=== PATIENT | female | born 1985 | race African-American/Black ===

== ENCOUNTER 2018-07-25 09:17 | Emergency (ER) | payer SELFPAY ==
[2018-07-25 09:23] VITALS: BP 137/85
--- NOTE | 2018-07-25 09:43 | ER Document Report ---
HPI - HPI Patient complains to provider of: ring stuck on finger Onset: This morning Onset/Duration: Gradual Quality of pain: Achy Pain Level: 4 Context: Patient complains of burning ring being stuck on her finger for the past hour. Associated Symptoms: Other - Left fourth finger pain Exacerbated by: Movement Relieved by: Denies Similar symptoms previously: No Recently seen / treated by doctor: No - ROS ROS below otherwise negative: Yes Systems Reviewed and Negative: Yes All other systems reviewed and negative - CONSTITUTIONAL Constitutional: DENIES: Fever - MUSCULOSKELETAL Musculoskeletal: REPORTS: Extremity pain, Swelling - DERM Skin Color: Normal Skin Problems: None Past Medical History - General Information source: Patient - Social History Smoking Status: Former Smoker Frequency of alcohol use: Occasional Drug Abuse: None Lives with: Spouse/Significant other Family History: Reviewed & Not Pertinent Patient has suicidal ideation: No Patient has homicidal ideation: No - Medical History Medical History: Negative Renal/ Medical History: Denies: Hx Peritoneal Dialysis Past Surgical History: Reports: Hx Orthopedic Surgery - foot Vertical Provider Document - CONSTITUTIONAL Agree With Documented VS: Yes Exam Limitations: No Limitations General Appearance: WD/WN, No Apparent Distress - INFECTION CONTROL TRAVEL OUTSIDE OF THE [place] IN LAST 30 DAYS: No - HEENT HEENT: Atraumatic, Normocephalic - NECK Neck: Normal Inspection - RESPIRATORY Respiratory: No Respiratory Distress - CARDIOVASCULAR Pulses: Normal: Radial - MUSCULOSKELETAL/EXTREMETIES Musculoskeletal/Extremeties: MAEW, Tender - Left fourth finger tenderness, Edema - 1+ edema to proximal phalanx of left fourth finger ring in place - NEURO Level of Consciousness: Awake, Alert, Appropriate Motor/Sensory: No Motor Deficit - DERM Integumentary: Warm, Dry, No Rash Course - Re-evaluation Re-evalutation: 07/25/18 09:51 After consent was obtained ring was removed. Patient tolerated procedure well. Skin intact underneath ring. - Vital Signs Vital signs: Temp Pulse Resp BP Pulse Ox 98.0 F 79 16 137/85 H 100 07/25/18 09:21 07/25/18 09:21 07/25/18 09:21 07/25/18 09:21 07/25/18 09:21 Discharge - Discharge Clinical Impression: ring removal Condition: Stable Disposition: HOME, SELF-CARE Additional Instructions: Return immediately for any new or worsening symptoms Followup with your primary care provider, call tomorrow to make a followup appointment Referrals: JESSICA MELTON, DO [ACTIVE STAFF] - Follow up as needed
== END 2018-07-25 09:53 | disposition home or self-care (01) ==
LOC: ER 09:17
DX: S60.455A Superficial foreign body of left ring finger, initial encounter (principal); R60.0 Localized edema; X58.XXXA Exposure to other specified factors, initial encounter; Z87.891 Personal history of nicotine dependence
CPT/HCPCS: 99283

== ENCOUNTER 2018-09-10 18:08 | Emergency (ER) | payer SELFPAY ==
[~2018-09-10 18:08] MED LIST: ADENOSINE INJ/PF 6 MG/2 ML SDV IV ONE; EPINEPHRINE INJ 1 MG/10 ML DISP.SYRIN ONE; SODIUM BICARBONATE 8.4% INJ 50 MEQ/50 ML DISP.SYRIN ONE
[2018-09-10] MEDS ORDERED: EPINEPHRINE INJ/PF 1 MG/1 ML AMPULE ONE ×2 (18:21→23:18)
--- NOTE | 2018-09-10 18:37 | ER Document Report ---
ED Resuscitation - General Information source: Relative TRAVEL OUTSIDE OF THE [place] IN LAST 30 DAYS: No <JEET DIAS - Last Filed: 09/10/18 22:59> <AYLIN CANELA - Last Filed: 09/11/18 02:36> - General Chief Complaint: Cardiac Arrest Stated Complaint: UNRESPONSIVE Time Seen by Provider: 09/10/18 18:32 Notes: Patient is a 33-year-old female that presents to the emergency department today unresponsive and in asystole. The patient was brought in through the front door by her . states that him and the patient lied down to take a nap around 1500 this afternoon and everything seemed to be normal. states he left to take his nephew somewhere and the patient went in to take a shower as he was leaving. states when he got home the patient was not out of the bathroom yet so he went in to check on her and she was on the floor, on her knees, unresponsive and pulseless. states the patient has no medical problems that he knows of other than a "recent throat infection" but he does not elaborate on this. denies any family or personal history of PE/ DVT. (JEET DIAS) - Related Data Allergies/Adverse Reactions: Penicillins Allergy (Verified 09/10/18 19:39) Past Medical History - General Information source: Relative - - Social History Smoking Status: Unknown if Ever Smoked Family History: Reviewed & Not Pertinent Past Surgical History: Reports: Hx Orthopedic Surgery - foot <JEET DIAS - Last Filed: 09/10/18 22:59> Review of Systems - Review of Systems -: Yes ROS unobtainable due to patient's medical condition <JEET DIAS - Last Filed: 09/10/18 22:59> Physical Exam <JEET DIAS - Last Filed: 09/10/18 22:59> - Vital signs Interpretation: Other - No pulse. No spontaneous respirations - General General appearance: Unresponsive In distress: Severe - HEENT Head: Normocephalic, Atraumatic Pupils: Dilated, Fixed - Respiratory Respiratory status: Other - No spontaneous respirations - Cardiovascular Rhythm: Other - No pulse palpated - Abdominal Inspection: Normal - Back Back: Normal - Extremities General upper extremity: No: Normal temperature General lower extremity: No: Normal temperature - Neurological Neuro grossly intact: No [place] Coma Scale Eye Opening: None René Coma Scale Verbal: None René Coma Scale Motor: None [place] Coma Scale Total: 3 - Skin Skin Temperature: Cool <AYLIN CANELA - Last Filed: 09/11/18 02:36> - Vital signs Vitals: Pulse BP 140 H 97/58 L 09/10/18 18:27 09/10/18 18:27 - Neurological Notes: No gag or corneal reflex (AYLIN CANELA) Course - Laboratory Result Diagrams: 09/10/18 22:17 09/10/18 18:20 <JEET DIAS - Last Filed: 09/10/18 22:59> - Laboratory Result Diagrams: 09/10/18 22:17 09/10/18 18:20 <AYLIN CANELA - Last Filed: 09/11/18 02:36> - Re-evaluation Re-evalutation: 09/10/18 18:42 Placed call to [facility] for emergent transfer 09/10/18 18:46 Dr. Durbin, ICU attending returned phone call. Dr. Durbin states that he is not accepting the patient until a head CT is performed and bloodwork is resulted, stating that the work up needs to be completed before he will accept the patient causing a delay in patient care/transfer. 09/10/18 19:[address] Abdoulaye Villarreal accepts patient for transfer. 09/10/18 20:45 Radiology called to report diffuse cerebral edema on the head CT, called [facility] to update. 09/10/18 20:48 [facility] returned call. Now accepts patient. 09/10/18 22:59 (JEET DIAS) Patient is a 33-year-old female who is brought in by her after she was found down in the bathroom. Patient has no known medical problems She is brought to the emergency department where she was found to be pulseless and apneic CPR was initiated. Please see code note. present during code Patient was intubated. The area was swollen and there appeared to be food coming up from her trachea, specifically rice. Fluids were given, epinephrine drip was initiated for hypotension which was later removed as the patient blood pressure was tripled over triple. Patient was discussed with [facility] and would not accept patient until CT was done to make sure that the patient did not need the neuro ICU [place] would accept patient but family wanted her to go to [facility] as the patient's father is admitted to the ICU there When transport arrived, which there was a delay due to weather and availability , patient's O2 on blood gas was 15 ICU attending would not accept the patient Had a very long discussion with the family about cerebral edema on CT, blood work, and that the patient could have a poor outcome between here and [facility]. Nursing staff and transport staff present for discussion Family decided to call other family members and then withdraw care Drips were stopped and patient was taken off ventilator although ET tube remain in place Time of 0204. Discussed at length with family. They would like autopsy. (AYLIN CANELA) - Vital Signs Vital signs: Temp Pulse Resp BP Pulse Ox 98.2 F 62 0 L 89/15 L 92 09/11/18 02:04 09/10/18 20:10 09/11/18 02:04 09/11/18 01:46 09/10/18 22:29 - Laboratory Laboratory results interpreted by me: 09/10/18 09/10/18 09/10/18 18:20 18:20 18:20 WBC RBC 2.07 L Hgb 6.4 L Hct 21.8 L MCV 105 H MCHC 29.6 L RDW 15.6 H Plt Count 88 L Seg Neutrophils % Lymphocytes % (Manual) 46 H Monocytes % Monocytes % (Manual) 2 L Absolute Neutrophils Carbonic Acid ABG pH ABG pCO2 ABG pO2 ABG HCO3 ABG Total CO2 ABG O2 Saturation VBG pH 6.66 L* VBG pCO2 103.1 H* VBG HCO3 11.2 L Chloride 111 H Carbon Dioxide 13 L Glucose 235 H Lactic Acid Calcium 6.9 L* AST 86 H ALT 86 H Alkaline Phosphatase 32 L Total Protein 3.8 L Albumin 1.9 L Urine Protein Urine Glucose (UA) Urine Blood Salicylates Acetaminophen 09/10/18 09/10/18 09/10/18 18:20 18:20 18:49 WBC RBC Hgb Hct MCV MCHC RDW Plt Count Seg Neutrophils % Lymphocytes % (Manual) Monocytes % Monocytes % (Manual) Absolute Neutrophils Carbonic Acid 2.42 H ABG pH 6.89 L* ABG pCO2 80.4 H* ABG pO2 209.6 H ABG HCO3 15.1 L ABG Total CO2 17.6 L ABG O2 Saturation 98.5 H VBG pH VBG pCO2 VBG HCO3 Chloride Carbon Dioxide Glucose Lactic Acid 9.9 H Calcium AST ALT Alkaline Phosphatase Total Protein Albumin Urine Protein Urine Glucose (UA) Urine Blood Salicylates < 1.0 L Acetaminophen < 10 L 09/10/18 09/10/18 09/10/18 21:05 22:17 22:17 WBC 12.7 H RBC Hgb Hct MCV MCHC RDW 14.4 H Plt Count Seg Neutrophils % 84.1 H Lymphocytes % (Manual) Monocytes % 1.5 L Monocytes % (Manual) Absolute Neutrophils 10.7 H Carbonic Acid ABG pH ABG pCO2 ABG pO2 ABG HCO3 ABG Total CO2 ABG O2 Saturation VBG pH VBG pCO2 VBG HCO3 Chloride Carbon Dioxide Glucose Lactic Acid 5.2 H Calcium AST ALT Alkaline Phosphatase Total Protein Albumin Urine Protein 30 H Urine Glucose (UA) >=500 H Urine Blood LARGE H Salicylates Acetaminophen Procedures - Intubation Orotracheal Airway evaluation: Copious secretions Mallampati Classification: Class 2 Intubation method: Orotracheal Blade type: Martinez Blade size: 4 Equipment used: Glidescope ETT size: 7.0 ETT secured at: Teeth Breath Sounds after Intubation: Equal End tidal CO2 confirmed: Yes Ventilator settings: CMV Post Intubation Xray: Yes Intubation Complications: Oral-unsuccessful attempt - Patient with vomiting and rice in her trachea Very swollen oropharynx Attempted twice with glide scope and unable to pass tube Attempted with Martinez for and was able to visualize the vocal cords and pass the endotracheal tube <AYLIN CANELA - Last Filed: 09/11/18 02:36> - Intubation Orotracheal Notes: 09/11/18 02:34 Very difficult airway (AYLIN CANELA) Critical Care Note - Critical Care Note Total time excluding time spent on procedures (mins): 120 - Evaluation and management of respiratory arrest, cardiac arrest, coordination of transfer, counseling of family, management of post cardiac arrest, removal of care at family's request, counseling of family <AYLIN CANELA - Last Filed: 09/11/18 02:36> Discharge <JEET DIAS - Last Filed: 09/10/18 22:59> <AYLIN CANELA - Last Filed: 09/11/18 02:36> - Discharge Clinical Impression: Respiratory arrest, Cardiac arrest Condition: Poor Disposition: Scribe Attestation: 09/11/18 02:35 I personally performed the services described in the documentation, reviewed and edited the documentation which was dictated to the scribe in my presence, and it accurately records my words and actions. (AYLIN CANELA) Scribe Documentation - Scribe Written by Scribe:: Letty Kim, [id number]/10/[id number] acting as scribe for :: Shamika <JEET DIAS - Last Filed: 09/10/18 22:59>
[2018-09-10] MEDS ORDERED: NORMAL SALINE 1000 ML 1,000 ML IV ONE (18:41)
[2018-09-10] MEDS: DEXTROSE 5%-WATER 250 ML with EPINEPHRINE/PF 1 MG IV PRN ×2 (18:45)
[2018-09-10 18:55] LABS: HEMATOCRIT 21.8 % (36.0-47.0); MEAN CORPUSCULAR HEMOGLOBIN 31.1 pg (27.0-33.4); MEAN CORPUSCULAR HGB CONC 29.6 g/dL (32.0-36.0); MEAN CORPUSCULAR VOLUME 105 fl (80-97); RED BLOOD COUNT 2.07 10^6/uL (3.72-5.28); RED CELL DISTRIBUTION WIDTH 15.6 % (11.5-14.0); WHITE BLOOD COUNT 9.6 10^3/uL (4.0-10.5)
[2018-09-10 18:57] LABS: VENOUS BLOOD BASE EXCESS -24.3 mmol/L; VENOUS BLOOD HCO3 11.2 mmol/L (20-32)
[2018-09-10 19:04] LABS: ALANINE AMINOTRANSFERASE 86 U/L (9-52); ALBUMIN 1.9 g/dL (3.5-5.0); ALKALINE PHOSPHATASE 32 U/L (38-126); ANION GAP 19 (5-19); ASPARTATE AMINO TRANSFERASE 86 U/L (14-36); BILIRUBIN,DIRECT 0.3 mg/dL (0.0-0.4); BILIRUBIN,TOTAL 0.3 mg/dL (0.2-1.3); BLOOD UREA NITROGEN 10 mg/dL (7-20); CARBON DIOXIDE 13 mmol/L (22-30); CHLORIDE 111 mmol/L (98-107); CREATINE KINASE 86 U/L (30-135); GLUCOSE 235 mg/dL (75-110); POTASSIUM 3.7 mmol/L (3.6-5.0); SODIUM 143.2 mmol/L (137-145); TOTAL PROTEIN 3.8 g/dL (6.3-8.2)
[2018-09-10 19:06] LABS: VENOUS BLOOD PH 6.66 (7.30-7.42)
[2018-09-10 19:07] LABS: VENOUS BLOOD PCO2 103.1 mmHg (35-63)
[2018-09-10 19:11] LABS: PLATELET COUNT 88 10^3/uL (150-450)
[2018-09-10 19:14] LABS: ARTERIAL BLOOD BASE EXCESS -18.2 mmol/L; ARTERIAL BLOOD H2CO3 2.42 mmol/L (1.05-1.35); ARTERIAL BLOOD HCO3 15.1 mmol/L (20-24); ARTERIAL BLOOD O2 SATURATION 98.5 % (94-98); ARTERIAL BLOOD PO2 209.6 mmHg (80-100); ARTERIAL BLOOD TOTAL CO2 17.6 mmol/L (21-25)
[2018-09-10 19:15] LABS: ABSOLUTE LYMPHOCYTES# (MANUAL) 4.4 10^3/uL (0.5-4.7); ABSOLUTE MONOCYTES # (MANUAL) 0.2 10^3/uL (0.1-1.4); ABSOLUTE NEUTROPHILS# (MANUAL) 4.7 10^3/uL (1.7-8.2); BASOPHILS % (MANUAL) 0 % (0-2); EOSINOPHILS % (MANUAL) 3 % (0-6); LYMPHOCYTES % (MANUAL) 46 % (13-45); MONOCYTES % (MANUAL) 2 % (3-13); PLATELET COMMENT DECREASED; SEGMENTED NEUTROPHILS % (MAN) 49 % (42-78); TOTAL CELLS COUNTED 100
[2018-09-10 19:17] LABS: BURR CELLS SLIGHT; CREATINE KINASE MB < 0.22 ng/mL (<4.55); OVALOCYTES SLIGHT; POIKILOCYTOSIS SLIGHT; TROPONIN I < 0.012 ng/mL
[2018-09-10 19:20] LABS: ARTERIAL BLOOD FIO2 90%; ARTERIAL BLOOD PH 6.89 (7.35-7.45)
[2018-09-10 19:21] LABS: CALCIUM 6.9 mg/dL (8.4-10.2); HEMOGLOBIN 6.4 g/dL (12.0-15.5)
[2018-09-10 19:21] LABS: ARTERIAL BLOOD PCO2 80.4 mmHg (35-45)
--- NOTE | 2018-09-10 19:47 | RADIOLOGY REPORT (SQ) ---
EXAM DESCRIPTION: CHEST SINGLE VIEW COMPLETED DATE/TIME: 09/10/2018 6:55 pm REASON FOR STUDY: post ETT COMPARISON: None. EXAM PARAMETERS: NUMBER OF VIEWS: One view. TECHNIQUE: Single frontal radiographic view of the chest acquired. RADIATION DOSE: NA LIMITATIONS: None. FINDINGS: LUNGS AND PLEURA: No consolidation, masses or pneumothorax. No pleural effusion. MEDIASTINUM AND HILAR STRUCTURES: No masses. Contour normal. HEART AND VASCULAR STRUCTURES: Heart normal in size. Normal vasculature. BONES: No acute findings. HARDWARE: Endotracheal tube tip is near the level of the negin in could be withdrawn approximately 5 cm for more ideal placement. Enteric catheter is present with tip overlying the body of the stomach . OTHER: No other significant finding. IMPRESSION: Endotracheal tube tip is near the level of the negin in could be withdrawn approximatel y 5 cm for more ideal placement. Enteric catheter is present with tip overlying the body of the stom ach. COMMENT: Results were called to the emergency room physician. TECHNICAL DOCUMENTATION: JOB ID: [id number] 2010 [employer]- All Rights Reserved Reading location - IP/workstation name: [email or web address]
--- NOTE | 2018-09-10 20:45 | EKG REPORT ---
SEVERITY:- ABNORMAL ECG - SINUS TACHYCARDIA PAIRED VENTRICULAR PREMATURE COMPLEXES CONSIDER LEFT VENTRICULAR HYPERTROPHY BORDERLINE PROLONGED QT INTERVAL : Confirmed by: Carolyn Gunn MD 10-Sep-2018 20:44:21
--- NOTE | 2018-09-10 20:45 | EKG REPORT ---
SEVERITY:- ABNORMAL ECG - SINUS TACHYCARDIA ABNORMAL T, CONSIDER ISCHEMIA, LATERAL LEADS PROLONGED QT INTERVAL : Confirmed by: Carolyn Gunn MD 10-Sep-2018 20:44:27
--- NOTE | 2018-09-10 20:55 | RADIOLOGY REPORT (SQ) ---
EXAM DESCRIPTION: CT HEAD WITHOUT COMPLETED DATE/TIME: 09/10/2018 8:26 pm REASON FOR STUDY: cardiac arrest COMPARISON: None. TECHNIQUE: Axial images acquired through the brain without intravenous contrast. Images reviewed wi th bone, brain and subdural windows. Images stored on PACS. All CT scanners at this facility use dose modulation, iterative reconstruction, and/or weight based d osing when appropriate to reduce radiation dose to as low as reasonably achievable (ALARA). [facility]: Dose Right [facility]: CareDose [facility]: Dose Right [facility]: Teradose 4D [facility]: [employer] RADIATION DOSE: CT Rad equipment meets quality standard of care and radiation dose reduction techniq ues were employed. CTDIvol: 53.2 mGy. DLP: 1017 mGy-cm. mGy. LIMITATIONS: None. FINDINGS: VENTRICLES: Effaced. CEREBRUM: No masses. No hemorrhage. No midline shift. No evidence for acute infarction. Generalize d parenchymal low density appearance. . CEREBELLUM: No masses. No hemorrhage. No alteration of density. No evidence for acute infarction. EXTRAAXIAL SPACES: Effaced sulci and basilar cisterns. ORBITS AND GLOBE: No intra- or extraconal masses. Normal contour of globe without masses. CALVARIUM: No fracture. PARANASAL SINUSES: No fluid or mucosal thickening. SOFT TISSUES: No mass or hematoma. OTHER: No other significant finding. IMPRESSION: Findings consistent with severe cerebral edema with effacement of sulci, basilar cistern s, and ventricles. Generalized parenchymal low density appearance. EVIDENCE OF ACUTE STROKE: Possible global COMMENT: Results were communicated to Dr. Wick at 2040 hours. Results were confirmed and read b ack. Quality ID # [id number]: Final reports with documentation of one or more dose reduction techniques (e.g., Au tomated exposure control, adjustment of the mA and/or kV according to patient size, use of iterative reconstruction technique) TECHNICAL DOCUMENTATION: JOB ID: [id number] [place]-[id number] 2010 [employer]- All Rights Reserved Reading location - IP/workstation name: [employer]
[2018-09-10 21:19] LABS: ACETAMINOPHEN < 10 ug/mL (10-30); ALCOHOL < 10 mg/dL (NONE DETECTED); SALICYLATE < 1.0 mg/dL (2.0-20.0)
[2018-09-10 21:25] LABS: APPEARANCE,URINE CLEAR; BILIRUBIN,URINE NEGATIVE (NEGATIVE); COLOR,URINE STRAW; GLUCOSE, URINE >=500 mg/dL (NEGATIVE); KETONES,URINE NEGATIVE (NEGATIVE); LEUKOCYTE ESTERASE,URINE NEGATIVE (NEGATIVE); NITRITE,URINE NEGATIVE (NEGATIVE); PROTEIN,URINE 30 mg/dL (NEGATIVE); URINE SPECIFIC GRAVITY 1.002; UROBILINOGEN,URINE NEGATIVE mg/dL (<2.0)
[2018-09-10 21:39] LABS: URINE AMPHETAMINES SCREEN NEGATIVE; URINE BARBITURATES SCREEN NEGATIVE; URINE BENZODIAZEPINES SCREEN NEGATIVE; URINE COCAINE SCREEN NEGATIVE; URINE MARIJUANA (THC) SCREEN UNCONFIRMED POSITIVE; URINE METHADONE SCREEN NEGATIVE; URINE PHENCYCLIDINE SCREEN NEGATIVE
[2018-09-10 22:25] LABS: ABSOLUTE BASOPHILS # (AUTO) 0.1 10^3/uL (0.0-0.2); ABSOLUTE EOSINOPHILS # (AUTO) 0.1 10^3/uL (0.0-0.6); ABSOLUTE LYMPHOCYTES (AUTO) 1.7 10^3/uL (0.5-4.7); ABSOLUTE MONOCYTES (AUTO) 0.2 10^3/uL (0.1-1.4); ABSOLUTE NEUT (AUTO) 10.7 10^3/uL (1.7-8.2); BASOPHILS % (AUTO) 0.5 % (0-2); EOSINOPHILS % (AUTO) 0.6 % (0-6); HEMATOCRIT 45.2 % (36.0-47.0); LYMPHOCYTES % (AUTO) 13.3 % (13-45); MEAN CORPUSCULAR HEMOGLOBIN 30.2 pg (27.0-33.4); MONOCYTES % (AUTO) 1.5 % (3-13); PLATELET COUNT 169 10^3/uL (150-450); RED BLOOD COUNT 4.93 10^6/uL (3.72-5.28); RED CELL DISTRIBUTION WIDTH 14.4 % (11.5-14.0); SEGMENTED NEUTROPHILS % (AUTO) 84.1 % (42-78); TOTAL CELLS COUNTED % (AUTO) 100 %; WHITE BLOOD COUNT 12.7 10^3/uL (4.0-10.5)
[2018-09-10 22:30] LABS: HEMOGLOBIN 14.9 g/dL (12.0-15.5); MEAN CORPUSCULAR VOLUME 92 fl (80-97)
[2018-09-10] MEDS ORDERED: DEXTROSE 5%-WATER 1000 ML 1,000 ML with SODIUM BICARBONATE 150 MEQ IV PRN ×2 (22:33)
[2018-09-10] MEDS ORDERED: SODIUM BICARBONATE 8.4% INJ 50 MEQ/50 ML DISP.SYRIN ONE (22:35)
[2018-09-10] MEDS ORDERED: DEXTROSE 5%-WATER 250 ML with NOREPINEPHRINE BITARTRATE 4 MG IV PRN ×2 (23:10)
[2018-09-10] MEDS ORDERED: NOREPINEPHRINE BITARTRATE INJ/PF 4 MG/4 ML SDV IV ONE (23:11)
[2018-09-11] MEDS: DEXTROSE 5%-WATER 250 ML with EPINEPHRINE/PF 1 MG IV PRN ×2
[2018-09-11 02:09] VITALS: BP 89/15
== END 2018-09-11 03:50 | disposition expired ==
LOC: ER 18:08
DX: I46.9 Cardiac arrest, cause unspecified (principal); R09.2 Respiratory arrest
CPT/HCPCS: 93005; 99291; 99292; 92950; 51702; 96375; 96365; 96366; 96368; 36415; 82553; 82962; 80307 ×4; 82803 ×2; 82550; 84703; 85025; 80053; 81001; 84484; 83605; 71045; 70450; 93010; 31500; J0171 ×3; J3490 ×2; J7060 ×3; J7030; J0153